=== PATIENT | male | born 2000 | race Caucasian/White ===

== ENCOUNTER 2018-03-02 13:48 | Emergency (ER) | payer OTHER ==
[~2018-03-02] VITALS: Ht 195.6 cm; Wt 80.7 kg
[~2018-03-02 13:48] MED LIST: ACETAMINOPHEN325 M1 PO; IBUPROFEN 600600 M1 PO
[2018-03-02 15:06] VITALS: BP 125/71
== END 2018-03-02 15:07 | disposition home or self-care (01) ==
LOC: M.ERS 13:48
DX: S01.01XA Laceration without foreign body of scalp, initial encounter (principal); W22.8XXA Striking against or struck by other objects, initial encounter; Y93.89 Activity, other specified; Y92.89 Other specified places as the place of occurrence of the external cause; Y99.8 Other external cause status

== ENCOUNTER 2018-03-09 14:31 | Emergency (ER) | payer OTHER ==
[~2018-03-09] VITALS: Ht 195.6 cm; Wt 80.7 kg
[2018-03-09 14:49] VITALS: BP 127/69
== END 2018-03-09 14:50 | disposition home or self-care (01) ==
LOC: M.ERS 14:31
DX: S01.01XD Laceration without foreign body of scalp, subsequent encounter (principal); X58.XXXD Exposure to other specified factors, subsequent encounter